=== PATIENT | female | born 2000 | race Caucasian/White ===

== ENCOUNTER → 2019-08-17 16:05 | Outpatient (BNVA) | payer OTHER, SELFPAY | PROVIDERS: Family Provider Family Medicine; PCP Electrodiagnostic Medicine; Visit Provider Nurse Practitioner Family | DX: J02.9 Acute pharyngitis, unspecified (principal) | CPT/HCPCS: 87081; 87880 ==

== ENCOUNTER → 2021-01-25 14:13 | Outpatient (BNVA) | payer OTHER, SELFPAY | PROVIDERS: Family Provider Family Medicine; PCP Electrodiagnostic Medicine; Visit Provider Family Medicine | DX: Z01.812 Encounter for preprocedural laboratory examination (principal); Z20.822 Contact with and (suspected) exposure to COVID-19; Z11.52 Encounter for screening for COVID-19 | CPT/HCPCS: 87635 ==

== ENCOUNTER → 2021-08-29 15:25 | Outpatient (BNVA) | payer OTHER, SELFPAY | PROVIDERS: Family Provider Family Medicine; PCP Electrodiagnostic Medicine; Visit Provider Family Medicine | DX: Z20.828 Contact with and (suspected) exposure to other viral communicable diseases (principal) | CPT/HCPCS: 87635 ==

== ENCOUNTER → 2022-08-07 13:43 | Outpatient (BNVA) | payer MEDICAID, SELFPAY | PROVIDERS: Family Provider Family Medicine; PCP Family Medicine; Visit Provider Registered Nurse Neonatal Intensive Care | DX: J02.9 Acute pharyngitis, unspecified (principal) | CPT/HCPCS: 87071; 87880 ==

== ENCOUNTER → 2022-10-14 10:13 | Outpatient (BNVA) | payer MEDICAID, SELFPAY | PROVIDERS: Family Provider Family Medicine; PCP Family Medicine; Visit Provider Family Medicine | DX: Z13.6 Encounter for screening for cardiovascular disorders (principal); E55.9 Vitamin D deficiency, unspecified | CPT/HCPCS: 80053; 80061; 82306; 83036; 85025 ==

== ENCOUNTER → 2023-07-02 10:22 | Outpatient (BNVA) | payer MEDICAID, SELFPAY | PROVIDERS: Family Provider Family Medicine; PCP Family Medicine; Visit Provider Family Medicine | DX: E03.9 Hypothyroidism, unspecified (principal); E55.9 Vitamin D deficiency, unspecified | CPT/HCPCS: 82306; 84443 ==

== ENCOUNTER → 2023-09-24 11:45 | Outpatient (BNVA) | payer OTHER, SELFPAY | PROVIDERS: Family Provider Family Medicine; PCP Family Medicine; Visit Provider Family Medicine | DX: E66.01 Morbid (severe) obesity due to excess calories (principal); Z68.41 Body mass index [BMI] 40.0-44.9, adult | CPT/HCPCS: 80053; 80061; 83036; 84443; 85025 ==

== ENCOUNTER → 2024-06-02 13:39 | Outpatient (BNVA) | payer OTHER, SELFPAY | PROVIDERS: Family Provider Family Medicine | DX: E66.01 Morbid (severe) obesity due to excess calories (principal); Z68.41 Body mass index [BMI] 40.0-44.9, adult | CPT/HCPCS: 80053 ==

== ENCOUNTER → 2024-12-21 14:26 | Outpatient (BNVA) | payer OTHER, SELFPAY | PROVIDERS: PCP Family Medicine; Visit Provider Emergency Medicine | DX: M25.561 Pain in right knee (principal) | CPT/HCPCS: 73562 ==

== ENCOUNTER → 2025-01-30 13:40 | Outpatient (BNVA) | payer OTHER, SELFPAY | PROVIDERS: PCP Family Medicine; Visit Provider Emergency Medicine | DX: S91.342A Puncture wound with foreign body, left foot, initial encounter (principal); X58.XXXA Exposure to other specified factors, initial encounter | CPT/HCPCS: 73630 ==

== ENCOUNTER → 2025-02-01 08:42 | Outpatient (BNVA) | payer OTHER, SELFPAY | PROVIDERS: PCP Family Medicine; Visit Provider Podiatrist Foot & Ankle Surgery | DX: M79.672 Pain in left foot (principal); S90.852A Superficial foreign body, left foot, initial encounter; W27.3XXA Contact with needle (sewing), initial encounter | CPT/HCPCS: 73630 ==

== ENCOUNTER 2025-02-06 10:31 | Day surgery (SDC) | payer OTHER, SELFPAY ==
[2025-02-06] VITALS (11 sets, daily range): BP systolic 81–122; BP diastolic 50–87; PULSE 69–84; RESP 14–22; TEMP 36.4–36.7; O2SAT 91–99; BMI 40.4
--- NOTE | 2025-02-06 11:21 | P.HPUD_ITS ---
Surgery/Procedure H&P Update DATE OF PROCEDURE: February 06, 2025 DATE H&P PERFORMED: 02/01/25 H&P UPDATE INFORMATION: I have reviewed H&P completed within last 30 days, I have examined patient prior to procedure, No changes to prior documentation, H&P is in [facility] EMR on date indicated and Risks and benefits of the procedure reviewed PREOP DIAGNOSIS: Foreign body left foot PLANNED PROCEDURE: Operation Date: 02/06/25 12:05 Proposed Procedures p Deep foreign body removal left foot(Left) - Yrn Drake DPM
--- NOTE | 2025-02-06 11:29 | ANES.PREANE2 ---
Pre-Anesthetic Assessment Height/Weight: Height 1.65 m Weight 110.223 kg Temp Pulse Resp BP Pulse Ox O2 Del Method 97.8 F 84 18 122/87 99 Room Air 02/06/25 10:55 02/06/25 10:55 02/06/25 10:55 02/06/25 10:55 02/06/25 10:55 02/06/25 10:56 Preop Diagnosis: Foreign body left foot Operation Date: 02/06/25 12:05 Proposed Procedures p Deep foreign body removal left foot(Left) - KIANA CharlesM Was Beta Abdiel taken within 24 hours: N/A Was Clonidine taken within 24 hours: N/A Last intake: Intake Last Liquid Date 02/05/25 Last Liquid Time 23:30 Last Solid Date 02/05/25 Last Solid Time 21:00 Social No alcohol and No tobacco Exam alert, oriented x 3, clear to auscultation bilaterally and regular rate & rhythm Airway Submandibular: within normal limits Cervical ROM: within normal limits Mallampati: Class II Dentition: full History/ROS No significant history except as noted and No significant complaints Pulmonary None reported CV/HEM None reported None reported Hepatic None reported GI None reported Metabolic Morbid Obesity [facility] [place] None reported Neuropsych None reported Anesthetic Plan ASA status: 2 Anesthesia: Anesthesia Evaluation and MAC Risk of > 500 ml blood loss (7ml/kg in children): No Medications/Allergies Home Medications ?Medication ?Instructions ?Recorded ?Confirmed ?Last Taken ?Type dextroamphetamine-amphetamine ER 30 mg PO DAILY 10/31/24 02/02/25 02/02/25 History 30 mg 24hr capsule,extend release (Adderall XR) omeprazole 40 mg capsule,delayed 40 mg PO DAILY #90 caps 01/12/25 02/02/25 02/02/25 Rx release tirzepatide (weight loss) 5 mg/0.5 5 mg (0.5 mL) SUBCUT ONCE #2 mL 01/12/25 02/02/25 01/25/25 Rx mL subcutaneous pen injector cephalexin 500 mg capsule 500 mg PO Q8H 7 days #21 caps 01/30/25 02/02/25 02/02/25 Rx buspirone 15 mg tablet 15 mg PO DAILY 02/02/25 02/02/25 02/02/25 History trazodone 50 mg tablet 50 mg PO DAILY 02/02/25 01/12/25 History Allergies Allergy/AdvReac Type Severity Reaction Status Date / Time No Known Allergies Allergy Verified 02/06/25 10:51 Current Medications Generic Name Dose Route Start Last Admin Trade Name [place] PRN Reason Stop Dose Admin Sodium Chloride 1,000 mls @ 30 mls/hr 02/06/25 10:45 02/06/25 11:11 Sodium Chloride 0.9% IV 02/07/25 10:44 30 mls/hr .Q24H LUIS EDUARDO Administration PFS Anesthesia Medical History (Updated 02/01/25 @ 09:24 by Yrn Drake DPM) Hypothyroidism Vitamin D deficiency ADHD Surgical History No pertinent past surgical history Social History Smoking and tobacco/nicotine status: never used tobacco/nicotine Alcohol intake: never Substance/Drug Use: never Adopted: No service: No Current occupational exposures/hazards: No
[2025-02-06 11:31] LABS: OR HCG Qualitative Urine Negative (Negative)
[2025-02-06] MEDS: ceFAZolin 2,000 mg SDV 2000 MG IVP (11:34)
[2025-02-06] MEDS: BUPivacaine 0.5% INJ 30 mL XX (11:42)
--- NOTE | 2025-02-06 11:59 | PM.OP ---
Operative Report Date of procedure: February 06, 2025 Surgeon: Yrn Drake DPM Procedure: Date of procedure: 02/06/2025 Pre-op diagnosis: Foreign body left foot Post-op diagnosis: Same Post-op findings: Retained foreign body left foot Procedure done: Foreign body removal left foot CPT 82995 Implants: None Specimens removed: Sewing needle left foot removed but not sent to pathology Surgeon: Dr. Yrn Drake DPM [employer]ide [employer] Sergeant: Brit Estimated blood loss: 2 cc Tourniquet time: 3 minutes Complications: None Patient is a 24-year-old female that has a history of left foot retained foreign body. Foreign body warrants removal. A lengthy discussion regarding the procedure, including risks and complications has been had with the patient and is noted in the recent clinic note. Written and verbal consent have been obtained. All patient questions have been answered to the patient?s satisfaction. No written or verbal guarantees have been given or implied. The patient has been NPO since midnight. The history has been reviewed and the history and physical is current. The signed consent was confirmed and placed in the patient chart. Patient imaging has been reviewed and is consistent with the diagnosis. Under mild sedation, the patient was brought into the operating room and placed on the table in the supine position. IV antibiotics were given by the anesthesia team as preoperative surgical prophylaxis. MAC sedation was then performed by the anesthesiateam. A pneumatic tourniquet was then placed about the left ankle. Local field block was performed using 0.5% Marcaine plain. The operative extremity was then prepped and draped in the usual fashion. The extremity was then elevated and exsanguinated before the tourniquet was inflated to 250 mmHg. After inflation, the following procedure was then performed. Attention was directed to the left foot where a 1 cm stab incision was made at the ball of the left foot under the second metatarsal phalangeal joint using a #15 blade. Mosquito hemostat was bluntly dissected down through subcutaneous tissue to the level of the foreign body. This was grasped under direct visualization via fluoroscopy and removed from the foot. Fluoroscopy confirmed removal of the foreign body. The site was irrigated with sterile saline before attention was directed to closure. Skin was closed with 3-0 nylon in simple interrupted fashion before being dressed with Xeroform, 4 x 4 gauze, Kerlix, [place]. Tourniquet was let down good hyperemic response was noted to all digits of the left foot. The patient tolerated the procedure and anesthesia well and without complication. The patient was transported from the operating room to the recovery room with vital signs stable and vascular status intact to all digits of the left foot. The patient was given both written and verbal instructions to remain weightbearing as tolerated to the operative extremity, to keep dressings/splint clean, dry and intact and to take pain medication as directed. The patient will follow-up in the outpatient setting at their scheduled appointment. The patient was discharged with my personal number and was instructed to call if any questions or issues should arise. They were discharged home once anesthesia criteria was met.
--- NOTE | 2025-02-06 13:10 | ANE.PACU2 ---
Inpatient post-anesthesia follow up: Airway intact: Yes Vital signs: Temperature 97.6 F Pulse Rate 69 Respiratory Rate 16 Blood Pressure 103/63 Pulse Oximetry 99 Oxygen Delivery Me thod Room Air Oxygen Flow Rate Fraction of Inspir ed Oxygen Hydration adequate: Yes Nausea and vomiting: No Pain level: 1 Mental status: Baseline
== END 2025-02-06 13:10 | disposition home or self-care (01) ==
PROVIDERS: Anesthesiology; PCP Family Medicine; Visit Provider Podiatrist Foot & Ankle Surgery
PROC: (CPT 28192; principal; 2025-02-06 11:55)
DX: S91.342A Puncture wound with foreign body, left foot, initial encounter (principal); W22.09XA Striking against other stationary object, initial encounter; E03.9 Hypothyroidism, unspecified
CPT/HCPCS: 28192; 73630; 76000; 81025; J0690; J2250; J2704; J3010; J3490; J7030; J9999

== ENCOUNTER → 2025-07-03 09:39 | Outpatient (BNVA) | payer OTHER, SELFPAY | PROVIDERS: PCP Family Medicine; Visit Provider Family Medicine | DX: Z13.6 Encounter for screening for cardiovascular disorders (principal); E55.9 Vitamin D deficiency, unspecified; E03.9 Hypothyroidism, unspecified | CPT/HCPCS: 80053; 80061; 82306; 84443; 85025 ==